=== PATIENT | male | born 1950 | race Asian ===

== ENCOUNTER → 2018-02-04 | Outpatient (CLI) | payer MEDICARE ==
[~2018-02-04] MED LIST: AMLO5TAB4 PO; DOCU-131 PO; LEVO750T26 PO; LISI40TA PO; METR500T PO; OXYC5TAB3 PO
== END ==
LOC: EDSTATUS 01-29 07:15 → CFH 07:38
PROVIDERS: ATTEND Family Medicine
DX: Z13.6 Encounter for screening for cardiovascular disorders (principal); R01.1 Cardiac murmur, unspecified; Z72.0 Tobacco use
CPT/HCPCS: 93978

== ENCOUNTER → 2020-05-28 | Outpatient (CLI) | payer MEDICARE | END | disposition home or self-care (01) | LOC: CFH 06:39 | PROVIDERS: ATTEND Family Medicine | DX: I08.2 Rheumatic disorders of both aortic and tricuspid valves (principal); I11.9 Hypertensive heart disease without heart failure; I27.20 Pulmonary hypertension, unspecified | CPT/HCPCS: 93306 ==